=== PATIENT | female | born 1970 | race Caucasian/White ===

== ENCOUNTER 2019-05-31 15:28 | Emergency (ER) | payer OTHER ==
[2019-05-31] MEDS ORDERED: oxyCODONE 5 MG Tab PO ONE ×2 (16:38→17:24)
[2019-05-31] MEDS ORDERED: oxyCODONE 5 MG Tab ONE ×2 (16:40→17:30)
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
--- NOTE | 2019-06-03 10:19 | CR ---
Date of Service: 05/31/19 Clinical Data: deformity LEFT ANKLE: There is a comminuted spiral fracture through the distal tibial metaphysis with mild lateral displacement to the distal fragments with respect to the proximal. There are healed fractures through the medial malleolus of the distal tibia and distal fibula that are fixed internally. No other acute abnormalities. [id number] MTDD
== END 2019-05-31 17:25 ==
LOC: LB.ED 15:28
DX: S82.392A Other fracture of lower end of left tibia, initial encounter for closed fracture (principal); Z79.899 Other long term (current) drug therapy; Z88.0 Allergy status to penicillin; V86.99XA Unspecified occupant of other special all-terrain or other off-road motor vehicle injured in nontraffic accident, initial encounter
CPT/HCPCS: 73600; 99284; A0425; A0429; A9270